=== PATIENT | female | born 1945 | race Caucasian/White ===

== ENCOUNTER → 2018-03-30 | Day surgery (SDC) | payer MEDICARE ==
[2018-03-22 13:28] LABS: BASOPHILS # (AUTO) 0.1 (0.0-0.1); BASOPHILS % 0.6 % (0.0-1.0); EOSINOPHILS % 0.2 % (0.0-6.0); HEMATOCRIT 46.8 % (34.2-44.1); HEMOGLOBIN 16.6 g/dL (12.0-16.0); LYMPHOCYTES # (AUTO) 1.4 (1.0-3.2); LYMPHOCYTES % 15.3 % (18.0-39.1); MEAN CORPUSCULAR HEMOGLOBIN 33.9 pg (28-32); MEAN CORPUSCULAR HGB CONC 35.5 g/dL (31-35); MEAN CORPUSCULAR VOLUME 95.5 fL (81-99); MONOCYTES # (AUTO) 0.8 (0.2-0.8); MONOCYTES % 8.7 % (4.4-11.3); NEUTROPHILS # (AUTO) 6.6 (2.1-6.9); NEUTROPHILS % 74.9 % (38.7-80.0); PLATELET COUNT 146 x10e3/uL (140-360); RED CELL DISTRIBUTION WIDTH 11.8 % (11.7-14.4)
[2018-03-22 13:56] LABS: BLOOD UREA NITROGEN 17 mg/dL (7-26); BUN/CREATININE RATIO 23 (6-25); CALCIUM 10.9 mg/dL (8.4-10.2); CARBON DIOXIDE 31 mmol/L (22-29); CHLORIDE 93 mmol/L (98-107); CREATININE, SERUM 0.75 mg/dL (0.57-1.11); EST GLOMERULAR FILTRATION RATE > 60 ML/MIN (60-); GLUCOSE 89 mg/dL (74-118); SODIUM 139 mmol/L (136-145)
--- NOTE | 2018-03-22 14:37 | Diagnostic Imaging Report ---
EXAMINATION: PA and lateral views of the chest. COMPARISON: None CLINICAL HISTORY: Preoperative study for foot surgery DISCUSSION: The lungs are hyperinflated with increased AP diameter of the chest. No focal consolidation, pleural effusion, or pneumothorax. Linear opacity in the right lung base likely reflect scar or subsegmental atelectasis. Tortuosity and atherosclerotic calcification of the thoracic aorta. Otherwise normal heart size. No pulmonary edema. No acute osseous abnormality. IMPRESSION: Pulmonary hyperinflation suggestive of COPD. No acute cardiopulmonary abnormality. Signed by: Dr. Km Kong M.D. on 03/22/2018 2:34 PM
[~2018-03-30] MED LIST: BIOTIN2500 MCG PO; BUPIVACAINE HCL 0.5% INJ 30 ML VIAL INJ ONE; BUPIVACAINE LIPOSOME/PF 266 MG/20 ML IJ ONE; CEFAZOLIN SOD 2 GM/D5W 50ML 50 ML IV ONE; CITALOPRAM HBR20 MG PO; CRESTOR10 MG PO; DEXAMETHASONE SOD PHOS INJ 4 MG/ML VIAL ONE; ESTRADIOL1 MG PO; FENTANYL CITRATE/PF 100MCG/2 ML INJ ONE; FEXOFENADINE H180 MG PO; FUROSEMIDE40 MG PO; LIDOCAINE HCL 2% LOCAL INJ 5 ML SDV VIAL INJ ONE; MIDAZOLAM HCL 2 MG/2 ML VIAL ONE; MULTIPLE VITAM1 EAC1 PO; OMEGA 3 FISH O1 EACH PO; ONDANSETRON HCL INJ 2 MG/ML VIAL ONE; PROPOFOL IV EMULSION 10 MG/ML 20 ML VIAL ONE; SEVOFLURANE INHAL SOLN 250 ML PEN BTL ONE; ULTRAM50 MG PO; VITAMIN C500 M1 PO
--- OUTSIDE RECORDS SUMMARY | 2018-03-30 11:18 | XMS REPORT ---
Author Author [facility] Address Unknown Phone Unavailable Care Team Providers Care Technical Publications Writer Name Role Phone Dwight ESCOBAR Unavailable Unavailable Problems This patient has no known problems. Allergies, Adverse Reactions, Alerts This patient has no known allergies or adverse reactions. Medications This patient has no known medications. Results Test Description Test Time Test Comments Text Results Atomic Results Result Comments CHEST 2 VIEWS 2018-03-22 14:32:00 [place] [address] Patient Name: YUE CRONIN MR #: [id number] : 1945 Age/Sex: 72/F Req #: [id number] Adm Physician: Ordered by: DAQUAN ESCOBAR DPM Report #: [id number] Location: OR Room/Bed: Procedure: [id number] DX/CHEST 2 VIEWS Exam Date: 03/22/18 Exam Time: 1300 REPORT STATUS: Signed EXAMINATION: PA and lateral views of the chest. COMPAR ZO: None CLINICAL HISTORY: Preoperative study for foot surgery DISCUSSION: The lungs are hyperinflated with increased AP diameter of the chest. No focal consolidation, pleural effusion, or pneumothorax. Linear opacity in the right lung base likely reflect scar or subsegmental atelectasis. Tortuosity and atherosclerotic calcification of the thoracic aorta. Otherwise normal heart size. No pulmonary edema. No acute osseous abnormality. IMPRESSION: Pulmonary hyperinflation suggestive of COPD. No acute cardiopulmonary abnormality. Signed by: Dr. Celena Quintanilla M.D. on 03/22/2018 2:34 PM Dictated By: CELENA QUINTANILLA MD [id number] Transcribed By: VIVIENNE on 03/22/18 1434 COPY TO: DAQUAN ESCOBAR DPM
[2018-03-30 15:30] VITALS: BP 171/81
--- NOTE | 2018-04-30 17:07 | Operative Report ---
DATE OF PROCEDURE: April 01, 2018 CONVERSION DEVELOPER: None. PREOPERATIVE DIAGNOSIS: Right foot fracture of 2nd, 3rd, 4th and 5th metatarsal. POSTOPERATIVE DIAGNOSIS: Right foot fracture of 2nd, 3rd, 4th and 5th metatarsal. PROCEDURES 1. Open reduction internal fixation of 3rd metatarsal, right foot. 2. Open reduction internal fixation, 4th metatarsal, right foot. 3. Use of intraoperative fluoroscopy. 4. Application of posterior splint. 5. Right tibial nerve block. HEMOSTASIS: Thigh tourniquet at 250 mmHg. INJECTABLES: 20 mL half-percent Marcaine plain. MATERIALS USED: Chappell locking plates of the appropriate length. DESCRIPTION OF PROCEDURE: After informed consent was obtained, the patient was brought into the operating room and placed on the operating table in supine position. General anesthesia was obtained. A pneumatic thigh tourniquet was applied to the right thigh. The right lower extremity was scrubbed, prepped, and draped in the usual aseptic manner. Attention was directed to the dorsal aspect of the right foot where a linear incision was made from proximal to distal encompassing the 3rd metatarsophalangeal joint. The incision was deepened down utilizing sharp and blunt dissection technique. All vital structures were identified and retracted as necessary. All bleeders were identified, ligated and cauterized as necessary. Next, the 3rd metatarsal fracture was visualized, and the fracture hematoma was resected and removed from the surgical site. The wound was irrigated with copious amounts of saline. The fracture was then reduced into the appropriate alignment. Next, temporary fixation was placed across the fracture site. Intraoperative fluoroscopy was used, which showed good reduction of deformity. Next, permanent fixation was completed utilizing Chappell locking plates of the appropriate length with locking screws placed distally and proximally to the fracture site. Intraoperative fluoroscopy was used, which showed good reduction of deformity, good placement of the hardware. Next, attention was directed to the right foot 4th metatarsal, where a linear incision was made along the fracture site approximately 3 cm in length. The incision was deepened down utilizing sharp and blunt dissection technique. All vital structures were identified and retracted as necessary. All bleeders were identified, ligated and cauterized as necessary. Next, the fracture was visualized and reduced into the appropriate alignment. The fracture hematoma was removed and resected from the surgical site. The wound was irrigated with copious amounts of saline. Next, the fracture was reduced into the appropriate alignment and intraoperative fluoroscopy was used, which showed good reduction of deformity. Next, permanent fixation was completed utilizing a locking plate of the appropriate length with 3 distal locking screws and 3 proximal locking screws to the fracture site. The wound was irrigated with copious amounts of saline. The wound was then coapted utilizing 3-0 Vicryl, 4-0 Vicryl and 4-0 nylon. The surgical site was then injected with 15 mL of 0.5% Marcaine plain followed by 5 mL used to perform a right tibial nerve block. At this time, the right foot was then placed in a dry sterile dressing consisting of Xeroform, 4 x 4's, Kerlix, Flo wrap, and pneumatic thigh tourniquet was deflated, and a prompt hyperemic response was noted to all digits of the right lower extremity. Next, a posterior splint was placed across the right lower extremity consisting of 4-inch and 6-inch Webril, a 4 x 30 splint, and a 4-inch and a 6-inch Flo. The patient tolerated the procedure and anesthesia well. The patient was transferred back to the recovery room with vital signs stable and neurovascular status intact to preop status. Job#: [id number] [place]
== END | disposition home or self-care (01) ==
LOC: OR 11:17 → EDBD 12:30
PROVIDERS: ATTEND Podiatrist Foot & Ankle Surgery
DX: S92.331A Displaced fracture of third metatarsal bone, right foot, initial encounter for closed fracture (principal); S92.341A Displaced fracture of fourth metatarsal bone, right foot, initial encounter for closed fracture; S92.321A Displaced fracture of second metatarsal bone, right foot, initial encounter for closed fracture; S92.351A Displaced fracture of fifth metatarsal bone, right foot, initial encounter for closed fracture; F17.210 Nicotine dependence, cigarettes, uncomplicated; X58.XXXA Exposure to other specified factors, initial encounter; Z88.2 Allergy status to sulfonamides; Z88.0 Allergy status to penicillin; Z01.810 Encounter for preprocedural cardiovascular examination; Z01.812 Encounter for preprocedural laboratory examination; Z01.818 Encounter for other preprocedural examination
CPT/HCPCS: 28485 ×2; 36415; 71046; 80048; 85025; 93005; C1713; J0690; J1100; J2001; J2250; J2405; J2704